=== PATIENT | female | born 1945 | race Caucasian/White ===

== ENCOUNTER 2018-10-16 15:12 | Observation (INO) | payer MEDICARE, OTHER ==
[~2018-10-16] VITALS: Ht 165.1 cm; Wt 92.7 kg
[~2018-10-16 15:12] MED LIST: ASPI-1012 PO; ATOR10TA69 PO; CLOP75TA32 PO; ESOM40CA54 PO; FENO48TA4 PO; HYDR-2132 PO; METO-391 PO; ROPI0.5T5 PO; SUCR1TAB2 PO; TRAZ150T79 PO
[2018-10-16 15:46] LABS: BASOPHILS % (AUTO) 0.8 % (0.0-5.0); EOSINOPHILS % (AUTO) 1.8 % (0.0-8.0); HEMATOCRIT 39.8 % (36-48); LYMPHOCYTES % (AUTO) 32.7 % (21.0-51.0); MEAN CORPUSCULAR HEMOGLOBIN 32.6 pg (27.0-33.0); MEAN CORPUSCULAR HGB CONC 34.5 g/dL (32.0-36.0); MEAN CORPUSCULAR VOLUME 94.5 fL (79-99); NEUTROPHILS % (AUTO) 55.7 % (40.0-77.0); PLATELET COUNT (AUTO) 270 K/uL (130-400); RED BLOOD CELL COUNT(AUTO) 4.21 MIL/uL (4.00-5.50); RED CELL DISTRIBUTION WIDTH 13.2 % (11.0-15.5); WHITE BLOOD COUNT (AUTO) 6.3 K/uL (4.8-10.8)
[2018-10-16 15:57] LABS: CREATININE 0.9 mg/dL (0.5-1.5); POTASSIUM 3.6 mmol/L (3.5-5.1)
[2018-10-16 15:58] LABS: INR 0.94 (0.85-1.15); PARTIAL THROMBOPLASTIN TIME 23.9 SEC (26.3-35.5); PROTHROMBIN TIME 9.9 SEC (9.6-11.6)
[2018-10-16] MEDS ORDERED: ASPIRIN 325 MG TABLET ONE (16:07)
[2018-10-16] MEDS ORDERED: LORAZEPAM 2 MG/ML 1 ML VIAL ONE (16:07)
[2018-10-16 16:08] LABS: ALBUMIN 3.7 g/dL (3.5-5.0); BILIRUBIN,TOTAL 0.4 mg/dL (0.2-1.0); TOTAL PROTEIN, SERUM 6.8 g/dL (6.0-8.3)
[2018-10-16 18:14] LABS: BILIRUBIN,URINE Negative (NEGATIVE); COLOR,URINE Yellow (YELLOW); GLUCOSE, URINE (UA) Negative (NEGATIVE); KETONES,URINE Negative (NEGATIVE); LEUKOCYTE ESTERASE ,URINE Negative (NEGATIVE); NITRATE,URINE Negative (NEGATIVE); OCCULT BLOOD,URINE Negative (NEGATIVE); PH,URINE 6.5 (5.0-8.0); PROTEIN,URINE Negative (NEGATIVE); UROBILINOGEN,URINE 0.2 mg/dL (0.2-1.0)
[2018-10-16 18:15] LABS: APPEARANCE,URINE CLEAR (CLEAR)
[2018-10-16 18:22] LABS: AMPHET/METH SCREEN,URINE NEGATIVE (NEGATIVE); BARBITURATE SCREEN, URINE POSITIVE (NEGATIVE); BENZODIAZEPINES SCREEN,URINE NEGATIVE (NEGATIVE); CANNABINOID SCREEN,URINE NEGATIVE (NEGATIVE); COCAINE SCREEN,URINE NEGATIVE (NEGATIVE); OPIATE SCREEN,URINE NEGATIVE (NEGATIVE); PHENCYCLIDINE SCREEN,URINE NEGATIVE (NEGATIVE)
[2018-10-16] MEDS: SUCRALFATE 1 GM TABLET PO SCH (21:00)
[2018-10-16] MEDS ORDERED: DIAZEPAM 5 MG TABLET PO PRN (21:00)
[2018-10-16] MEDS: TRAMADOL /APAP 37.5MG/325MG TAB PO SCH (21:00)
[2018-10-16] MEDS: TRAZODONE HCL 50 MG TAB PO SCH (21:00)
[2018-10-16] MEDS: ATORVASTATIN CALCIUM 10 MG TABLET PO SCH (21:00)
[2018-10-16] MEDS ORDERED: ACETAMINOPHEN 325 MG TAB PO PRN ×2 (21:00)
[2018-10-16] MEDS ORDERED: PROMETHAZINE HCL 25 MG TABLET PO PRN (21:00)
[2018-10-16] MEDS: FAMOTIDINE/PF 20 MG/2 ML VIAL IV SCH (21:00)
[2018-10-16] MEDS: PANTOPRAZOLE SODIUM 40 MG TABLET.DR PO SCH (21:29)
[2018-10-16] MEDS: METOPROLOL TARTRATE 25 MG TAB PO SCH (21:30)
[2018-10-16 21:44] LABS: THYROID STIMULATING HORMONE 1.59 uIU/mL (0.36-3.74)
[2018-10-16] MEDS ORDERED: ATORVASTATIN CALCIUM 10 MG TABLET ONE (22:05)
[2018-10-16] MEDS ORDERED: TRAZODONE HCL 50 MG TAB ONE (22:06)
[2018-10-16] MEDS ORDERED: SUCRALFATE 1 GM TABLET ONE (22:06)
[2018-10-16] MEDS ORDERED: TRAMADOL /APAP 37.5MG/325MG TAB ONE (22:07)
[2018-10-16] MEDS ORDERED: FAMOTIDINE/PF 20 MG/2 ML VIAL IV ONE (22:08)
[2018-10-17 01:00] VITALS: BP 144/84
[2018-10-17] MEDS ORDERED: BUTA1CAP49 PO (03:02)
[2018-10-17] MEDS ORDERED: BETA1TAB20 PO (03:02)
[2018-10-17] MEDS: TRAMADOL /APAP 37.5MG/325MG TAB PO SCH ×4 (03:12→21:00)
[2018-10-17 04:35] VITALS: BP 110/66
[2018-10-17 05:44] LABS: HEMOGLOBIN A1C 5.6 % (4.0-6.0)
[2018-10-17 08:00] VITALS: BP 115/71
[2018-10-17] MEDS ORDERED: FENOFIBRATE NANOCRYSTALLIZED 48 MG TAB PO SCH (09:00)
[2018-10-17] MEDS: ROPINIROLE HCL 1 MG TABLET PO SCH (09:47)
[2018-10-17] MEDS: SUCRALFATE 1 GM TABLET PO SCH ×2 (09:47→22:03)
[2018-10-17] MEDS: FAMOTIDINE/PF 20 MG/2 ML VIAL IV SCH ×2 (09:47→22:04)
[2018-10-17] MEDS: PANTOPRAZOLE SODIUM 40 MG TABLET.DR PO SCH ×2 (09:47→20:28)
[2018-10-17] MEDS: METOPROLOL TARTRATE 25 MG TAB PO SCH ×2 (09:47→22:03)
[2018-10-17] MEDS: FENOFIBRATE NANOCRYSTALLIZED 145 MG TAB PO SCH (11:01)
--- NOTE | 2018-10-17 11:39 | NUR ---
DYSPHAGIA EVAL COMPLETE. -S/S OF ASPIRATION. RECOMMEND REGULAR, THIN LIQUID DIET; PILLS WHOLE WITH LIQUIDS. PATIENT INFORMATION: Pt IS A 73 Y.O. FEMALE REFERRED FOR A BEDSIDE DYSPHAGIA EVALUATION SECONDARY TO POSSIBLE CVA UPON ADMISSION. Pt AAOX3 AND SERVED THE PRIMARY INFORMANT FOR MEDICAL AND SOCIAL HISTORY. Pt CURRENTLY ADMITTED SECONDARY TO INTRACTABLE MIGRAINE HEADACHE. Pt HAS A PAST MEDICAL HISTORY SIGNIFICANT FOR CVA 2016, CAD, HYPERTENSION, HYPERLIPIDEMIA, MIGRAINE HEADACHE, LEFT TKA, LOWER BACK SURGERY, APPENDECTOMY, PARTIAL HYSTERECTOMY, BILATERAL BREAST IMPLANTS. EVALUATION: SWALLOW FUNCTION AND EFFICIENCY WITHIN FUNCTIONAL LIMITS. ORAL MOTOR STRENGTH, COORDINATION, AND ROM WITHIN FUNCTIONAL LIMITS. LARYNGEAL ELEVATION/EXCURSION STRONG WITH TIMELY PHARYNGEAL RESPONSE. NO OVERT SIGNS OR SYMPTOMS OF ASPIRATION PRESENT AT BEDSIDE. VOCAL QUALITY CLEAR WITH NO THROAT CLEAR OR COUGH RESPONSE PRESENT. RECOMMENDATIONS: 1. REGULAR TEXTURE, THIN LIQUID DIET; PILLS WHOLE WITH LIQUIDS. 2. COMPENSATORY STRATEGIES (PROPHYLAXIS): *SEATED AT 90 DEGREE ANGLE G-CODES SWALLOWING: [id number] Addendum: 10/17/18 at 1142 [address] Amended: Links added.
--- NOTE | 2018-10-17 11:43 | NUR ---
COGNITIVE EVAL COMPLETE. COGNITIVE-LINGUISTIC ABILITIES WITHIN FUNCTIONAL LIMITS. PATIENT INFORMATION: Pt IS A 73 Y.O. FEMALE REFERRED FOR A COGNITIVE-LINGUISTIC EVALUATION SECONDARY TO POSSIBLE CVA UPON ADMISSION. Pt AAOX3 AND SERVED THE PRIMARY INFORMANT FOR MEDICAL AND SOCIAL HISTORY. Pt CURRENTLY ADMITTED SECONDARY TO INTRACTABLE MIGRAINE HEADACHE. Pt HAS A PAST MEDICAL HISTORY SIGNIFICANT FOR CVA 2016, CAD, HYPERTENSION, HYPERLIPIDEMIA, MIGRAINE HEADACHE, LEFT TKA, LOWER BACK SURGERY, APPENDECTOMY, PARTIAL HYSTERECTOMY, BILATERAL BREAST IMPLANTS. EVALUATION: Pt AAOX3. Pt REQUESTS WANTS AND NEEDS INDEPENDENTLY. Pt INTELLIGIBLE AT 100% ACCURACY TO THE UNFAMILIAR LISTENER. Pt COMMUNICATING AT CONVERSATIONAL LEVEL WITH NO DEFICITS IDENTIFIED AT THIS TIME. Pt COMPLETED COGNITIVE-LINGUISTIC EVALUATION TARGETING: ORIENTATION, ATTENTION/CONCENTRATION, MEMORY (IMMEDIATE, SHORT-TERM AND LONG-TERM), PROBLEM SOLVING, LOGIC/REASONING/INFERENCE, THOUGHT ORGANIZATION, FUNCTIONAL MATH AND TELLING TIME. Pt ABLE TO COMPLETE TASKS WITH CORRECT AND TIMELY ANSWERS TO ALL SECTIONS. G-CODES SPOKEN LANGUAGE EXPRESSION: [id number] Addendum: 10/17/18 at 1145 by JOSE RAFAEL ROSALES Amended: Links added.
[2018-10-17 12:00] VITALS: BP 120/75
[2018-10-17 16:00] VITALS: BP 106/61
[2018-10-17 20:04] VITALS: BP 109/64
[2018-10-17] MEDS ORDERED: AMITRIPTYLINE HCL 25 MG TABLET PO SCH (21:00)
[2018-10-17] MEDS: ATORVASTATIN CALCIUM 10 MG TABLET PO SCH (22:03)
[2018-10-17] MEDS: TRAZODONE HCL 50 MG TAB PO SCH (22:03)
[2018-10-18 00:15] VITALS: BP 144/73
[2018-10-18] MEDS: TRAMADOL /APAP 37.5MG/325MG TAB PO SCH ×2 (03:00→09:00)
[2018-10-18 04:00] VITALS: BP 104/67
[2018-10-18 08:16] VITALS: BP 110/71
[2018-10-18] MEDS ORDERED: ASPIRIN 81MG TAB.CHEW PO SCH (09:00)
[2018-10-18] MEDS ORDERED: CLOPIDOGREL BISULFATE 75 MG TAB PO SCH (09:00)
[2018-10-18] MEDS: SUCRALFATE 1 GM TABLET PO SCH (10:50)
[2018-10-18] MEDS: FAMOTIDINE/PF 20 MG/2 ML VIAL IV SCH (10:50)
[2018-10-18] MEDS: PANTOPRAZOLE SODIUM 40 MG TABLET.DR PO SCH (10:51)
[2018-10-18] MEDS: FENOFIBRATE NANOCRYSTALLIZED 145 MG TAB PO SCH (10:51)
[2018-10-18] MEDS: METOPROLOL TARTRATE 25 MG TAB PO SCH (10:51)
[2018-10-18] MEDS: ROPINIROLE HCL 1 MG TABLET PO SCH (10:51)
[2018-10-18 12:20] VITALS: BP 122/69
--- NOTE | 2018-10-18 12:58 | NUR ---
RD Notification Patient tolerating Heart Healthy Diet with PO intake at 75-100%. Patient with no report of GI distress. Patient LBM 10/16/18. Patient BMI 34.0 - Obesity Grade I. Patient monitored labs: B12 1960, Glu 114, Ca 10.0. No nutritional concerns at this time as per nursing and patient. RD to follow-up. Please notify RD as nutrition concerns arise. Thank you. Addendum: 10/18/18 at [address] Amended: Links added.
--- NOTE | 2018-10-18 14:57 | NUR ---
RELEASE OF MEDICALR MAEVE Patient signed release to have her records sent to Drs. Angela and Ирина. Filed in chart.
== END 2018-10-18 15:20 | disposition home or self-care (01) ==
LOC: EDH 15:12 → EDHIP 20:00 → 3CH 23:49
PROVIDERS: ADMIT Internal Medicine; ATTEND Internal Medicine
DX: R42 Dizziness and giddiness (principal); E78.5 Hyperlipidemia, unspecified; R13.10 Dysphagia, unspecified; G43.909 Migraine, unspecified, not intractable, without status migrainosus; R47.01 Aphasia; I10 Essential (primary) hypertension; I34.1 Nonrheumatic mitral (valve) prolapse; I69.351 Hemiplegia and hemiparesis following cerebral infarction affecting right dominant side; Z91.14 Patient's other noncompliance with medication regimen; Z90.711 Acquired absence of uterus with remaining cervical stump; Z96.652 Presence of left artificial knee joint; Z98.82 Breast implant status; Z82.0 Family history of epilepsy and other diseases of the nervous system; Z82.3 Family history of stroke; Z82.49 Family history of ischemic heart disease and other diseases of the circulatory system; Z83.3 Family history of diabetes mellitus; Z79.01 Long term (current) use of anticoagulants; Z79.899 Other long term (current) drug therapy
CPT/HCPCS: G8996; G8997; G8998; 36415; 70450; 70544; 70547; 70551; 71045; 80053; 80061; 80305; 81003; 82550; 82607; 82948; 83036; 83874; 84443; 84484; 85025; 85610; 85730; 92522; 92610; 93005; 93306; 93880; 96374; 96376; 99291; G0378; J2060; J3490; Q0169

== ENCOUNTER → 2021-11-08 | Outpatient (CLI) | payer OTHER ==
[~2021-11-08] MED LIST changes: +BETA1TAB20 PO; +BUTA1CAP49 PO; +FENO48TA10 PO; -FENO48TA4 PO; -ROPI0.5T5 PO; +ROPI0.5T7 PO
== END | disposition home or self-care (01) ==
LOC: RAH 14:42
PROVIDERS: ATTEND Physical Medicine & Rehabilitation
DX: M48.02 Spinal stenosis, cervical region (principal); M43.12 Spondylolisthesis, cervical region; M47.812 Spondylosis without myelopathy or radiculopathy, cervical region; M47.816 Spondylosis without myelopathy or radiculopathy, lumbar region; M48.061 Spinal stenosis, lumbar region without neurogenic claudication; R26.89 Other abnormalities of gait and mobility; Z88.1 Allergy status to other antibiotic agents
CPT/HCPCS: 72052; 72110

== ENCOUNTER → 2021-12-01 | Outpatient (CLI) | payer OTHER | END | disposition home or self-care (01) | LOC: RAH 08:56 | PROVIDERS: ATTEND Physical Medicine & Rehabilitation | DX: M48.02 Spinal stenosis, cervical region (principal); M47.812 Spondylosis without myelopathy or radiculopathy, cervical region | CPT/HCPCS: 72141 ==

== ENCOUNTER → 2021-12-30 | Outpatient (CLI) | payer OTHER | LOC: RAH 09:02 | PROVIDERS: ATTEND Physical Medicine & Rehabilitation | DX: M47.816 Spondylosis without myelopathy or radiculopathy, lumbar region (principal); M48.07 Spinal stenosis, lumbosacral region | CPT/HCPCS: 72148 ==

== ENCOUNTER 2022-04-05 00:14 | Emergency (ER) | payer OTHER ==
[~2022-04-05] VITALS: Ht 165.1 cm; Wt 68.5 kg
[2022-04-05] MEDS ORDERED: DICYCLOMINE HCL 10 MG/5 ML ML PO ONE (00:30)
[2022-04-05] MEDS ORDERED: 0.9%NACL 1000ML 1,000 ML IV ONE (00:30)
[2022-04-05] MEDS ORDERED: MAG/ALUM/SIMETH 30 ML UDCUP PO ONE (00:30)
[2022-04-05] MEDS ORDERED: LIDOCAINE HCL 2% VISCOUS 15 ML UDCUP PO ONE (00:30)
[2022-04-05] MEDS ORDERED: KETOROLAC 15MG/ML VIAL (15MG/ML) IV ONE (00:30)
[2022-04-05] MEDS ORDERED: ONDANSETRON 4MG INJ IVP ONE (00:30)
[2022-04-05 00:41] LABS: BASOPHILS % (AUTO) 0.7 % (0.0-5.0); EOSINOPHILS % (AUTO) 1.1 % (0.0-8.0); LYMPHOCYTES % (AUTO) 48.4 % (21.0-51.0); MEAN CORPUSCULAR HEMOGLOBIN 32.7 pg (27.0-33.0); MEAN CORPUSCULAR VOLUME 93.5 fL (79-99); MONOCYTES % (AUTO) 8.2 % (3.0-13.0); NEUTROPHILS % (AUTO) 41.4 % (40.0-77.0); PLATELET COUNT (AUTO) 217 K/uL (130-400); RED BLOOD CELL COUNT(AUTO) 3.85 MIL/uL (4.00-5.50); RED CELL DISTRIBUTION WIDTH 12.9 % (11.0-15.5); WHITE BLOOD COUNT (AUTO) 5.6 K/uL (4.8-10.8)
[2022-04-05 00:54] LABS: CREATININE 0.7 mg/dL (0.5-1.5); POTASSIUM 3.5 mmol/L (3.5-5.1)
[2022-04-05 00:58] LABS: TOTAL PROTEIN, SERUM 6.2 g/dL (6.0-8.3)
[2022-04-05] MEDS ORDERED: DICY10 PO (01:38)
[2022-04-05 01:46] VITALS: BP 125/60
== END 2022-04-05 02:04 | disposition home or self-care (01) ==
LOC: EDH 00:14
DX: R10.13 Epigastric pain (principal); E78.00 Pure hypercholesterolemia, unspecified; I10 Essential (primary) hypertension; Z79.1 Long term (current) use of non-steroidal anti-inflammatories (NSAID); Z79.82 Long term (current) use of aspirin; Z79.899 Other long term (current) drug therapy; Z88.0 Allergy status to penicillin; Z86.73 Personal history of transient ischemic attack (TIA), and cerebral infarction without residual deficits
CPT/HCPCS: 99283; 96374; 71045; 96361; 96375; 84484; 80053; 83690; 85025; 36415; 93005; J7030; J2405; J1885

== ENCOUNTER → 2023-10-04 | Outpatient (CLI) | payer OTHER ==
[~2023-10-04] MED LIST changes: +DICY10 PO; +ROPI0.5T37 PO; -ROPI0.5T7 PO
== END | disposition home or self-care (01) ==
LOC: RAH 13:42
PROVIDERS: ATTEND Nurse Practitioner Adult Health
DX: M25.562 Pain in left knee (principal)
CPT/HCPCS: 73562

== ENCOUNTER → 2024-02-29 | Outpatient (CLI) | payer OTHER ==
[~2024-02-29] MED LIST changes: -ESOM40CA54 PO; +ESOM40CA66 PO; +GADOTERATE MEGLUMINE 10 MMOL/20 ML VIAL IV ONE
== END | disposition home or self-care (01) ==
LOC: RAH 07:28
PROVIDERS: ATTEND Internal Medicine Gastroenterology
DX: K80.20 Calculus of gallbladder without cholecystitis without obstruction (principal); R93.2 Abnormal findings on diagnostic imaging of liver and biliary tract
CPT/HCPCS: 74183; A9575

== ENCOUNTER → 2024-06-02 | Outpatient (CLI) | payer OTHER ==
[~2024-06-02] MED LIST changes: -GADOTERATE MEGLUMINE 10 MMOL/20 ML VIAL IV ONE
== END | disposition home or self-care (01) ==
LOC: RAH 12:57
PROVIDERS: ATTEND Nurse Practitioner Adult Health
DX: G31.89 Other specified degenerative diseases of nervous system (principal); F03.90 Unspecified dementia, unspecified severity, without behavioral disturbance, psychotic disturbance, mood disturbance, and anxiety
CPT/HCPCS: 70551

== ENCOUNTER → 2024-06-19 | Outpatient (CLI) | payer OTHER | END | disposition home or self-care (01) | LOC: RAH 10:30 | PROVIDERS: ATTEND Nurse Practitioner Adult Health | DX: N26.1 Atrophy of kidney (terminal) (principal); R31.9 Hematuria, unspecified; R10.31 Right lower quadrant pain; Z90.710 Acquired absence of both cervix and uterus | CPT/HCPCS: 76770; 76856 ==

== ENCOUNTER → 2024-08-25 | Outpatient (CLI) | payer OTHER ==
--- NOTE | 2024-08-26 09:11 | HMCIMG ---
LUMBAR W FLEXION/EXTENSION REASON: LUMBART RADICULOPATHY, SCOLIOSIS, SACROLITIS COMPARISON: None TECHNIQUE: 4 views were obtained including flexion and extension. FINDINGS: There is 22 degrees levoscoliosis visible on the AP view. Lateral view shows normal posterior vertebral body alignment. There is a 50% compression deformity superior endplate of L1 unchanged compared to prior study 11/08/2021. Flexion and extension views were obtained. There is normal posterior vertebral body alignment. There are moderate degenerative changes in the facets. IMPRESSION: 1. 22 degrees levoscoliosis, this has increased somewhat since prior study 11/08/2021. 2. Stable compression deformity L1. 3. Degenerative changes posterior facets 4. No subluxation on flexion and extension views.
== END | disposition home or self-care (01) ==
LOC: RAH 16:10
PROVIDERS: ATTEND Physician Assistant
DX: M47.26 Other spondylosis with radiculopathy, lumbar region (principal); M41.86 Other forms of scoliosis, lumbar region; M46.1 Sacroiliitis, not elsewhere classified
CPT/HCPCS: 72114

== ENCOUNTER → 2024-09-19 | Outpatient (CLI) | payer OTHER ==
--- NOTE | 2024-09-22 09:21 | HMCIMG ---
SCREENING MAMMOGRAM REASON: Annual Exam COMPARISON: 02/21/2022 TECHNIQUE: CC and MLO views of the bilateral breasts were performed.Implant displacement views were performed. CAD was performed as well. FINDINGS: Parenchymal density: There are scattered areas of fibroglandular density. There are no focal mass lesions. There are no pathologic appearing calcifications. There is no evidence of architectural distortion or skin thickening. There is an implant in place without evidence of rupture. IMPRESSION: Stable screening mammogram. The patient was entered into a reminder system with a target due date for their next mammogram. BI-RADS CATEGORY 2: BENIGN FINDINGS Recommend monthly self breast exam as well as annual clinical examination. A negative x-ray should not delay biopsy if a dominant or clinically suspicious mass is present, since 8-10% of cancers are not identified by mammography. Dense breasts particularly, may obscure an underlying neoplasm. Some of these may be detected clinically and therefore, clinical examination is an essential part of breast evaluation.
== END | disposition home or self-care (01) ==
LOC: RAH 08:49
PROVIDERS: ATTEND Nurse Practitioner Adult Health
DX: Z12.31 Encounter for screening mammogram for malignant neoplasm of breast (principal); R92.323 Mammographic fibroglandular density, bilateral breasts
CPT/HCPCS: 77067

== ENCOUNTER 2024-10-22 06:36 | Day surgery (SDC) | payer OTHER ==
[2024-10-20 15:06] VITALS: BP 122/65; PULSE 66; RESP 18; TEMP 97.2
[2024-10-20 15:14] LABS: BASOPHILS # (AUTO) 0.05 K/uL (0.00-0.20); BASOPHILS % (AUTO) 0.7 % (0.0-5.0); EOSINOPHILS # (AUTO) 0.13 K/uL (0.00-0.70); EOSINOPHILS % (AUTO) 1.9 % (0.0-8.0); HEMATOCRIT 40.1 % (36-48); IMMATURE GRANULOCYTE ABSOLUTE 0.02 K/uL (0-1); LYMPHOCYTES # (AUTO) 1.6 K/uL (1.0-4.8); MEAN CORPUSCULAR HEMOGLOBIN 33.9 pg (27.0-33.0); MEAN CORPUSCULAR HGB CONC 33.4 g/dL (32.0-36.0); MEAN CORPUSCULAR VOLUME 101.5 fL (79-99); MONOCYTES # (AUTO) 0.5 K/uL (0.1-1.0); MONOCYTES % (AUTO) 7.4 % (3.0-13.0); NEUTROPHILS # (AUTO) 4.7 K/uL (1.8-7.7); NEUTROPHILS % (AUTO) 66.7 % (40.0-77.0); PLATELET COUNT (AUTO) 204 K/uL (130-400); RED BLOOD CELL COUNT(AUTO) 3.95 MIL/uL (4.00-5.50); RED CELL DISTRIBUTION WIDTH 13.4 % (11.0-15.5)
[2024-10-20 15:25] LABS: CREATININE 0.7 mg/dL (0.5-1.0); POTASSIUM 4.7 mmol/L (3.5-5.1)
[~2024-10-22] VITALS: Ht 165.1 cm; Wt 78.9 kg
[2024-10-22] VITALS (12 sets, daily range): BP systolic 134–144; BP diastolic 60–69; PULSE 63–90; RESP 12–19; TEMP 96.5–98
[~2024-10-22 06:36] MED LIST changes: +ACAR25TA2 PO; -ASPI-1012 PO; +ATOR10 PO; -ATOR10TA69 PO; -BUTA1CAP49 PO; -DICY10 PO; +DICY20TA3 PO; +DONE5TAB5 PO; -ESOM40CA66 PO; +FAMO20TA8 PO; -FENO48TA10 PO; -HYDR-2132 PO; -SUCR1TAB2 PO; +TRAZ-187 PO; -TRAZ150T79 PO
[2024-10-22] MEDS ORDERED: dexaMETHasone SOD PHOSPHATE 10MG/ML 1ML VIAL ONE ×2 (07:18→07:22)
[2024-10-22] MEDS ORDERED: LIDOCAINE PF 100MG/5ML (2%) SYRINGE 5ML ONE (07:18)
[2024-10-22] MEDS ORDERED: ondanSETRON 4MG INJ ONE ×2 (07:18→07:22)
[2024-10-22] MEDS ORDERED: MIDAZOLAM HCL 1 MG/ML 2ML VIAL ONE (07:19)
[2024-10-22] MEDS ORDERED: proPOFol 10 MG/ML 20ML VIAL IV ONE (07:19)
[2024-10-22] MEDS ORDERED: FENTanyl CITRate PF 50 MCG/1 ML 2ML VIAL ONE (07:19)
[2024-10-22] MEDS ORDERED: rocuRONium bROMide 10MG/1ML 5ML VL ONE (07:19)
[2024-10-22] MEDS ORDERED: phenylEPHRINE HCL 10 MG/ML 1ML VIAL IV ONE (07:22)
[2024-10-22] MEDS ORDERED: NEOSTIGMINE METHYLSULFATE 1MG/ML IV ONE (07:22)
[2024-10-22] MEDS ORDERED: GLYCOPYRROLATE 0.2 MG/ML 5 ML VIAL ONE (07:22)
[2024-10-22] MEDS ORDERED: ROPivacaine 0.5% 5MG/ML 30ML ONE (07:23)
[2024-10-22] MEDS: CLINDAMYCIN 900MG/6ML INJ IV ONE (07:58)
[2024-10-22] MEDS ORDERED: ePHEDrine SULFate 50 MG/ML AMPULE ONE (08:42)
[2024-10-22] MEDS: CLINDAMYCIN IVPB 900MG/50ML 50 ML IV ONE (08:54)
[2024-10-22] MEDS: LACTATED RINGERS 1000ML 1,000 ML IV ONE (08:54)
[2024-10-22] MEDS: ceFAZolin SODIUM 2 GM VIAL ONE (08:54)
--- NOTE | 2024-10-22 09:33 | OP ---
Operative Note: DATE OF PROCEDURE: 10/22/24 SURGEON: SUSAN GAMA MD INCENDIARIES SUPERVISOR: [please review operative record] ANESTHESIA: [general and local] ANESTHESIOLOGIST/FOOD DEHYDRATOR OPERATOR: [please review operative record] PREOPERATIVE DIAGNOSIS: [symptomatic cholelithiasis, gallbladder mass] POSTOPERATIVE DIAGNOSIS: [symptomatic cholelithiasis, gallbladder mass] SYNOPSIS: [mildly inflamed gallbladder, negative IOC. Small mobile mass palpated within gallbladder lumen] PROCEDURE: [laparoscopic cholecystectomy with intraoperative cholangiogram] ESTIMATED BLOOD LOSS: [20 ccs] INDICATIONS: [Patient is a 79 yo female with RUQ discomfort and ultrasound findings of gallbladder mass. Recommendation was given for cholecystectomy. Risks, benefits, alternatives were discussed. All questions answered. Patient agreed to proceed with surgical intervention.] DESCRIPTION OF PROCEDURE: [After proper consent was obtained, the patient was taken to the operating room and placed in the supine position on the operating table. General endotracheal anesthesia was then induced. The patients abdomen was sterilely prepped and draped in the standard surgical fashion. Through a RIGHT subcostal incision, Veress needle was inserted into the peritoneal cavity. Insufflation was allowed to 12 mmHg. Through a epigastric incision, 5mm trocar and laparoscope were inserted in to the peritoneal cavity using optiview. Veress needle and its vicinity were examined with no signs of injury. Additional working trocars were placed under direct visualization. Patient was positioned at 20 reverse Trendelenburg, slight tilt to the left. Gallbladder was examined, it appeared mildly inflamed. Gallbladder fundus was grasped and retracted cephalad. Infundibulum was grasped and retracted medially and laterally to accomplish my dissection. At this time, Calots triangle was dissected using a combination of blunt dissection and electrocautery. the cystic duct wall and cystic artery were circumferentially dissected. A clip was placed as high up on the cystic duct as possible. Ductotomy was performed on the cystic duct using sharp scissors. Cholangiogram was obtained. This revealed good distal flow into duodenum, no intraductal filling defect and good visualization of hepatic radicles. The cystic duct was then clipped 3 times and sharply divided with the 3 clips staying behind.The cystic artery was then dissected free and also doubly clipped and also ligated. The gallbladder was then taken off its peritoneal attachment with hook electrocautery off the gallbladder bed fossa. Hemostasis was obtained. The gallbladder was then removed with an EndoCatch bag through an 12 mm port. The port of this fascia was closed with 0 Vicryl suture through a suture passer. Final inspection revealed no leakage of bile and adequate hemostasis. The abdomen was then allowed to collapse. All skin incisions were closed with 4- 0 Monocryl in running subcuticular fashion. The incisions were covered with Dermabond. The patient was awoken from anesthesia and transported to the recovery room in good condition. All instrument, sponge, and needle counts were correct at the end of the case.] SUSAN GAMA MD Oct 22, 2024 09:33
[2024-10-22] MEDS: ondanSETRON 4MG INJ ONE (09:34)
--- NOTE | 2024-10-22 09:39 | DS ---
Discharge Summary Hospital Course Pt is a 79 yo female that presented from the outpatient setting for elective laparoscopic cholecystectomy with intraoperative cholangiogram on 10/22/24 for gallbladder mass. Patient tolerated the procedure well. No issues intraoperatively. Pt with no concerns at this time. Currently in recovery. Remains hemodynamically stable, afebrile. Normal sinus rhythm. Aerating well on 2 l NC. Abdomen is benign. Incisions c/d/i. appropriately tender to palpation. No rebound or guarding. She will discharge today once meeting anesthesia DC criteria. Follow up in place. Post op meds have been submitted. Will resume regular diet. No lifting >20 lbs for 1 month Return precautions given including fevers of 101.5 or higher, worsening abdominal pain, intractable nausea or vomiting. SUSAN GAMA MD Oct 22, 2024 09:39
--- NOTE | 2024-10-22 10:25 | NUR ---
Full and complete discharge instructions given to Patient and Family both verbally and in writing. Explained Surgical procedure precautions and follow up. Voided in restroom. Lap Beatrice sites x 4 clean and dry. All questions answered. PIV removed with catheter tip intact. Home with Family W/C to POV.
[2024-10-22] MEDS ORDERED: IOHEXOL-300 50 ML VIAL IV ONE (12:02)
--- NOTE | 2024-10-22 13:08 | HMCIMG ---
CHOLANGIO &/OR PANCRE INTRAOPE REASON: CHOLANGIOGRAM W IOC'S. COMPARISON: None TECHNIQUE: Intraoperative cholangiogram study was performed by referring physician. FINDINGS: Please see procedure report by referring physician. IMPRESSION: Intraoperative films.
== END 2024-10-22 10:40 | disposition home or self-care (01) ==
LOC: DAH 06:36
PROVIDERS: ATTEND Surgery
DX: K81.1 Chronic cholecystitis (principal); I10 Essential (primary) hypertension; G43.909 Migraine, unspecified, not intractable, without status migrainosus; E11.9 Type 2 diabetes mellitus without complications; K91.1 Postgastric surgery syndromes; R42 Dizziness and giddiness; K21.9 Gastro-esophageal reflux disease without esophagitis; Z86.16 Personal history of COVID-19; E78.5 Hyperlipidemia, unspecified; Z88.1 Allergy status to other antibiotic agents; Z86.73 Personal history of transient ischemic attack (TIA), and cerebral infarction without residual deficits; Z79.01 Long term (current) use of anticoagulants; Z79.899 Other long term (current) drug therapy
CPT/HCPCS: 80048; 85025; 86850; 86900; 86901; 36415; 47563; 88304; 74300; 64488; A6260; A4663; J7030; A4215 ×2; C1758; J7120; J3010; J1100 ×2; J3490 ×4; J2003; J2250; J2704; J2405 ×2; J2710; J2795; J2371; Q9967; C1769 ×3; A4649 ×2; A4930; A4222; A4221; A4216; A4223 ×2; A4600; J0690

== ENCOUNTER 2024-10-31 12:36 | Emergency (ER) | payer OTHER ==
[~2024-10-31] VITALS: Ht 152.4 cm; Wt 76.2 kg
--- NOTE | 2024-10-31 14:29 | EKG ---
[facility] Test Date: 2024-10-31 Test Time: 14:26:09 Pat Name: MARINA CONNER Department: ED Room: Gender: F Environmental Engineering Assistant: [id number] : 1945 Requested By: TALA CARDENAS Order Number: [id number] Reading MD: Chidi Chan Measurements Intervals [place] Rate: 63 P: 49 WI: 177 QRS: 31 QRSD: 98 T: 32 QT: 415 QTc: 425 Interpretive Statements Sinus rhythm Anteroseptal infarct, age indeterminate Compared to ECG 04/05/2022 00:21:21 Myocardial infarct finding now present Electronically Signed On 10-31-2024 14:50:34 SECTION HAND by Chidi Chan Please click the below link to view image of tracing.
--- NOTE | 2024-10-31 14:44 | ERN ---
General Chief Complaint: Shortness of Breath Stated Complaint: SOB Time Seen by MD: 12:38 Source: patient History of Present Illness Initial Comments PATIENT IS A 79-YEAR-OLD FEMALE COMING IN TO BE EVALUATED FOR SHORTNESS OF BREATH. PER PATIENT THE SHORTNESS OF BREATH HAS BEEN ONGOING SINCE 1:00 A.M.. SHE ALSO STATES THAT SHE WAS RECENTLY OPERATED AND GALLBLADDER WAS REMOVED. NO CHILLS NO HISTORY OF COPD OR ASTHMA. Allergies: Coded Allergies: amoxicillin (Unverified Allergy, Unknown, 06/07/16) Home Meds Reported Medications Acarbose (Acarbose) 25 Mg Tablet, 25 MG PO TID, TAB 10/20/24 Donepezil HCl (Aricept 5Mg Tab) 5 Mg Tab, 5 MG PO DAILY, TAB 10/20/24 Clopidogrel Bisulfate (Clopidogrel) 75 Mg Tablet, 75 MG PO HS, TAB 10/20/24 Famotidine (Famotidine) 20 Mg Tablet, 20 MG PO BID, TAB 10/20/24 Dicyclomine HCl (Dicyclomine HCl) 20 Mg Tablet, 20 MG PO BID, TAB 10/20/24 Trazodone HCl (Trazodone HCl) 100 Mg Tablet, 100 MG PO HS, TAB 10/20/24 Atorvastatin Calcium (LIPITOR) 20 Mg Tab, 20 MG PO HS, TAB 10/20/24 Vit A/Vit C/Vit E/Zinc/Copper (Preservision Areds Tablet) 1 Each Tablet, 1 EACH PO BID, TAB 10/17/18 Ropinirole HCl (Ropinirole HCl) 0.5 Mg Tablet, 0.5 MG PO HS, TAB 11/03/16 Metoprolol Succinate (Metoprolol Succinate) 50 Mg Tab.er.24h, 50 MG PO HS, TAB 09/05/16 Past Medical History Past Medical History: High Cholesterol, Heart Disease, Hypertension Past Surgical History: Hysterectomy, Cholecystectomy, Surgical History Other: BACK, LEFT KNEE SX Social History Social History: Negative, Lives with family Female( History) History: Not Applicable ROS Dictation CONSTITUTIONAL: NO CHILLS, NO FEVER, NO WEAKNESS, NO DIAPHORESIS, NO MALAISE. HEAD/FACE: NO SIGNS OF TRAUMA. EENT: NO EYE PAIN, NO BLURRED VISION, NO TEARING, NO DOUBLE VISION, NO EAR PAIN, NO EAR DISCHARGE, NO NOSE PAIN, NO NASAL CONGESTION, NO THROAT PAIN, NO THROAT SWELLING, NO MOUTH PAIN. RESPIRATORY: NO COUGH, NO ORTHOPNEA, NO SOB, NO STRIDOR, NO WHEEZING. CARDIOVASCULAR: NO CHEST PAIN, NO EDEMA, NO PALPITATIONS, NO SYNCOPE. GASTROINTESTINAL/ABDOMINAL: NO ABDOMINAL PAIN, NO CONSTIPATION, NO DIARRHEA, NO NAUSEA, NO VOMITING. GENITOURINARY: NO ABNORMAL DISCHARGE, NO DYSURIA, NO FREQUENT URINATION, NO HEMATURIA. NO COMPLAINTS OF PAIN IN THE GENITALS. MUSCULOSKELETAL: NO BACK PAIN, NO GOUT, NO JOINT PAIN, NO JOINT SWELLING, NO MUSCLE PAIN, NO MUSCLE STIFFNESS, NO NECK PAIN. INTEGUMENTARY: NO CHANGE IN COLOR, NO CHANGE IN HAIR/NAILS, NO DRYNESS, NO LESION, NO LUMPS, NO RASH. NEUROLOGICAL/PSYCH: NO ANXIETY, NOT DEPRESSED, NO EMOTIONAL PROBLEM, NO HEADACHE, NO NUMBNESS, NO PRE-EXISTING DEFICIT, NO HISTORY OF SEIZURES, NO TREMORS, NO WEAKNESS. HEMATOLOGIC/LYMPHATIC: NOT ANEMIC, NO HISTORY OF BLOOD CLOTS, NO APPARENT BLEEDING, NO BRUISING, GLANDS NOT SWOLLEN. ALL SYSTEMS NEGATIVE, EXCEPT NOTED. Physical Exam Physical Exam Dictation VITAL SIGNS: REVIEWED. GENERAL APPEARANCE: ALERT, ORIENTED X3, NO ACUTE DISTRESS, OBESE. HEAD AND FACE: NON-TRAUMATIC. EYES: PERRL, PINK CONJUNCTIVAS, EYELID NO TRAUMA, ANTERIOR CHAMBER CLEAR. EARS: PINNAS INTACT AND NO SIGNS OF TRAUMA OR ERYTHEMA. EAR CANALS CLEAR AND NO DISCHARGE. TMS NO ERYTHEMA. NOSE: NO DISCHARGE, NO BLEEDING. OROPHARYNX: MOUTH NORMAL, TEETH NO CARIES, TONGUE PINK. PHARYNX CLEAR, NO ERYTHEMA. TONSILS NO EXUDATES, NO ABSCESSES NOTED. MUCOUS MEMBRANE MOIST. NECK: SUPPLE, NON-TENDER, NO THYROMEGALY, NO MASSES, NO JVD, NO BRUITS. BREAST: DEFERRED. CHEST: NO TENDERNESS, NO CREPITUS, NO PARADOXICAL MOVEMENT, NO RETRACTIONS. LUNGS: CLEAR, WELL-VENTILATED, SYMMETRIC, NO RALES, NO WHEEZING, NO RHONCHI, NO STRIDOR, GOOD BREATH SOUNDS BILATERALLY. HEART: REGULAR RATE, REGULAR RHYTHM, NO MURMUR, NO GALLOPS. VASCULAR: NO PERIPHERAL EDEMA. ABDOMEN: SOFT, POSITIVE BOWEL SOUNDS, NONDISTENDED, NO GUARDING, NONTENDER, NO REBOUND, NO MASSES NO HEPATOMEGALY, NO SPLENOMEGALY, NO HANNON'S SIGN, NO HERNIAS. RECTAL: DEFERRED. GENITAL: DEFERRED. NEUROLOGICAL: NORMAL SPEECH, GROSS MOTOR FUNCTION INTACT, GROSS SENSORY FUNCTION INTACT. MUSCULOSKELETAL: NECK NONTENDER, FULL RANGE OF MOTION, BACK NONTENDER, FULL RANGE OF MOTION. EXTREMITIES: NONTENDER, FULL RANGE OF MOTION. SKIN: COLOR PINK, DRY, NO TURGOR, NO RASH, NO LACERATIONS, NO ABRASIONS, NO CONTUSIONS. LYMPHATICS: DEFERRED. Results Laboratory and Microbiology Lab and Micro Result Laboratory Tests Test 10/31/24 14:39 10/31/24 15:45 10/31/24 15:55 White Blood Count 7.0 K/uL (4.8-10.8) Red Blood Count 3.98 MIL/uL (4.00-5.50) L Hemoglobin 13.5 g/dL (12.0-16.0) Hematocrit 40.1 % (36-48) Mean Corpuscular Volume 100.8 fL (79-99) H Mean Corpuscular Hemoglobin 33.9 pg (27.0-33.0) H Mean Corpuscular Hemoglobin Concent 33.7 g/dL (32.0-36.0) Red Cell Distribution Width 12.9 % (11.0-15.5) Platelet Count 235 K/uL (130-400) Mean Platelet Volume 8.8 fL (7.5-10.5) Immature Granulocyte % (Auto) 0.1 % (0-1) Neutrophils (%) (Auto) 58.7 % (40.0-77.0) Lymphocytes (%) (Auto) 24.9 % (21.0-51.0) Monocytes (%) (Auto) 9.4 % (3.0-13.0) Eosinophils (%) (Auto) 6.0 % (0.0-8.0) Basophils (%) (Auto) 0.9 % (0.0-5.0) Neutrophils # (Auto) 4.1 K/uL (1.8-7.7) Lymphocytes # (Auto) 1.8 K/uL (1.0-4.8) Monocytes # (Auto) 0.7 K/uL (0.1-1.0) Eosinophils # (Auto) 0.42 K/uL (0.00-0.70) Basophils # (Auto) 0.06 K/uL (0.00-0.20) Absolute Immature Granulocyte (auto 0.01 K/uL (0-1) Nucleated Red Blood Cells 0.0 % (0.0-0.19) Prothrombin Time 10.3 SEC (9.6-11.6) Prothromb Time International Ratio 0.97 (0.85-1.15) Activated Partial Thromboplast Time 25.5 SEC (26.3-35.5) L Sodium Level 139 mmol/L (136-145) Potassium Level 3.9 mmol/L (3.5-5.1) Chloride Level 104 mmol/L (101-111) Carbon Dioxide Level 33 mmol/L (21-32) H Blood Urea Nitrogen 17 mg/dL (7-18) Creatinine 0.7 mg/dL (0.5-1.0) Glomerular Filtration Rate Calc 89 mL/min (>90) Random Glucose 92 mg/dL (70-105) Total Calcium 9.2 mg/dL (8.5-10.1) Magnesium Level 2.10 mg/dL (1.80-2.40) Total Creatine Kinase 38 U/L (21-232) # Troponin I High Sensitivity 4.8 ng/L (4-50) B-Type Natriuretic Peptide 38 pg/mL (0-100) Influenza Type A Antigen Negative For Type A Influenza Type B Antigen Negative For Type B SARS-CoV-2, RNA, NAAT NEGATIVE SARS CoV-2 Urine Color YELLOW (YELLOW) Urine Appearance CLEAR (CLEAR) Urine pH 5.5 (5.0-8.0) Urine Specific Tucker 1.022 (1.001-1.031) Urine Protein NEGATIVE mg/dL (NEGATIVE) Urine Glucose (UA) NEGATIVE mg/dL (NEGATIVE) Urine Ketones NEGATIVE mg/dL (NEGATIVE) Urine Occult Blood NEGATIVE (NEGATIVE) Urine Nitrate NEGATIVE (NEGATIVE) Urine Bilirubin NEGATIVE mg/dL (NEGATIVE) Urine Urobilinogen 0.2 mg/dL (0.2-1.0) Urine Leukocyte Esterase 500 Lm/uL (NEGATIVE) H Urine RBC 11-25 /HPF (0-1) H Urine WBC 51-100 /HPF (0-1) H Urine Squamous Epithelial Cells RARE /HPF (0-2) Urine Bacteria RARE /HPF (None Seen) Labs Reviewed?: Yes EKG/XRAY/US/CT/MRI EKG Comment 10/31/2024 TIME 2:26 P.M. VENTRICULAR RATE 63 SINUS RHYTHM [place] [address] WAVE ELEVATION OR DEPRESSION X-RAY Comment [facility] [address] [place] [id number] IMAGING REPORT Signed PATIENT: MARINA CONNER MR#: [id number] : 1945 SEX: F AGE: 79 LOCATION: ED ORDER [id number] STATUS: REG ER REPORT#: [id number] SERVICE 1416 REASON: SOB ORDERING PHYSICIAN: TALA CARDENAS MD PROCEDURE: CXR1VW - CHEST 1VW PORTABLE CHEST RADIOGRAPH INDICATION: SOB COMPARISON: 04/05/2022 FINDINGS: Heart size is normal. The pulmonary vascularity and derrick appear normal. No abnormal pulmonary parenchymal opacity or consolidation identified. No significant pleural effusion noted. No pneumothorax detected. Mild thoracic spondylosis. IMPRESSION: No radiographic evidence for any acute cardiopulmonary process. DICTATED BY: GRZEGORZ AMBROSIO MD DATE: 10/31/24 1453 ELECTRONICALLY SIGNED BY: GRZEGORZ AMBROSIO MD DATE: 10/31/[address] Scan Comment [facility] [address] [address] IMAGING REPORT Signed PATIENT: MARINA CONNER MR#: [id number] : 1945 SEX: F AGE: 79 LOCATION: EDH ORDER [id number] STATUS: REG ER REPORT#: [id number] SERVICE 1630 REASON: SHORTNESS OF BREATH ORDERING PHYSICIAN: TALA CARDENAS MD PROCEDURE: CHES PE - CT CHEST PE PROTOCOL WWO CONT CT ANGIOGRAM OF THE CHEST WITHOUT AND WITH CONTRAST. CT RECONSTRUCTIONS INDICATION: Shortness of breath TECHNIQUE: Routine axial images using 3 mm slice thickness were acquired from the lung apices to the bases before and after the intravenous administration of 100 mL of Omnipaque 350 contrast material using the pulmonary embolism protocol. Maximum Intensity Projection imaging in the sagittal and coronal planes were also provided. CT was performed with one or more of the following dose reduction techniques: Automated exposure control, adjustment of the mA and/or kV according to patient size, or use of iterative reconstruction technique. COMPARISON: None FINDINGS: The contrast bolus is of good quality for diagnosis of pulmonary embolism. The heart size is within normal limits without pericardial effusion. The main pulmonary arteries, segmental branches, and visualized subsegmental pulmonary arteries appear normal without intraluminal filling defects. Pulmonary trunk is not enlarged. No evidence for thoracic aortic aneurysm or dissection. The origins of the great vessels and thoracic aorta appear normal. The visible portions of the trachea and airways are patent. No pleural effusion, pneumothorax, abnormal opacity or consolidation, pulmonary nodule, or mass identified. No axillary, hilar, or mediastinal lymphadenopathy detected. Gastric bypass surgery changes. Gallbladder is absent. 2.8 cm diverticulum along the proximal duodenum. Mild thoracic dextroscoliosis. IMPRESSION: No evidence for pulmonary embolism. Additional minor findings and pertinent negatives as reported. DICTATED BY: GRZEGORZ AMBROSIO MD DATE: 10/31/241703 ELECTRONICALLY SIGNED BY: GRZEGORZ AMBROSIO MD DATE: 10/31/24 170 [facility] MDM: Differential diagnosis: Previous surgery, shortness of breath, UTI, dehydration Patient is a 79-year-old female coming in to be evaluated for shortness of breath. Patient states the symptoms wax and wane. She was recently discharged after having a cholecystectomy. CT did not disclose acute findings patient was found to have a urinary tract infection based on laboratory workup. Patient will be discharged in stable condition with a diagnosis of UTI and dehydration. ED Course Orders Procedure Category Date Status Time Cbc With Differential LAB 10/31/24 Complete 14:16 Prothrombin Time With LAB 10/31/24 Complete INR 14:16 B-Type Natriuretic LAB 10/31/24 Complete Peptide 14:16 Chest 1vw RAD 10/31/24 Resulted 14:16 12 Lead Ekg Tracing- EKG 10/31/24 Resulted Technical 14:16 Magnesium LAB 10/31/24 Complete 14:16 Urinalysis Profile LAB 10/31/24 Complete 14:16 Partial LAB 10/31/24 Complete Thromboplastin Time 14:16 Basic Metabolic Panel LAB 10/31/24 Complete 14:16 Covid Rna Naat LAB 10/31/24 Complete 14:16 Influenza Type A & B, LAB 10/31/24 Complete Rapid 14:16 Cardiac Panel LAB 10/31/24 Complete 14:39 Culture Urine ELIN 10/31/24 In Process 16:09 Ct Chest Pe Protocol CT 10/31/24 Resulted Wwo Cont 16:30 Iohexol (Omnipaque) PHA 10/31/24 Complete 16:31 Current Medications Medications (Trade) Dose Ordered Sig/Josse Route PRN Reason Start Time Stop Time Status Last Admin Dose Admin Iohexol (Omnipaque) 35,000 mg STK-MED ONCE IV 10/31/24 16:31 10/31/24 16:31 DC Vital Signs Date Time Temp Pulse Resp B/P (MAP) Pulse Ox O2 Delivery O2 Flow Rate FiO2 10/31/24 16:31 98.1 63 20 154/63 98 Room Air* 0 21 10/31/24 12:46 99.1 81 16 105/61 96 Room Air 0 DX & DISP Disposition: Discharge Departure Impression: Primary Impression: UTI (urinary tract infection) Additional Impression: Dehydration Condition: Stable Scripts Sulfamethoxazole/Trimethoprim (Bactrim Ds Tablet) 800 Mg-160 Mg Tablet 1 TAB PO BID for 10 Days, #20 TAB 0 Refills Prov: TALA CARDENAS MD 10/31/24 Additional Instructions: FOLLOW-UP WITH PRIMARY CARE PROVIDER IN 1 TO 2 DAYS. TAKE MEDICATIONS DIRECTED HERE IN THE EMERGENCY ROOM. OKAY TO CONTINUE HOME MEDICATIONS UNLESS OTHERWISE DISCUSSED DURING YOUR VISIT IN THE EMERGENCY ROOM TODAY. RETURN TO YOUR NEAREST EMERGENCY ROOM IF SYMPTOMS WORSEN OR IF THERE IS NO IMPROVEMENT. CALL [phone] IF YOU NEED IMMEDIATE ASSISTANCE. TAKE TYLENOL [id number] NEEDED AND IF NO CONTRAINDICATIONS ARE PRESENT. INCREASE ORAL HYDRATION. A WOUND CULTURE OR URINE CULTURE WAS ORDERED HERE IN THE EMERGENCY ROOM DEPARTMENT PLEASE FOLLOW-UP WITH PRIMARY CARE PROVIDER AND ADVISE THEM TO GET REPEAT PORTS FROM OUR FACILITY. IF YOU HAD ANY KIEL WRAP/SPLINTS THAT WERE APPLIED HERE, PLEASE DO NOT REMOVE THEM UNTIL YOU SEE YOUR PRIMARY CARE OR SPECIALTY. Referrals: Referrals: FELIPE LOOMIS NP (PCP) Time of Disposition: 17:15 TALA CARDENAS MD Oct 31, 2024 14:44
[2024-10-31 14:50] LABS: BASOPHILS # (AUTO) 0.06 K/uL (0.00-0.20); BASOPHILS % (AUTO) 0.9 % (0.0-5.0); EOSINOPHILS # (AUTO) 0.42 K/uL (0.00-0.70); HEMATOCRIT 40.1 % (36-48); IMMATURE GRANULOCYTE ABSOLUTE 0.01 K/uL (0-1); LYMPHOCYTES # (AUTO) 1.8 K/uL (1.0-4.8); LYMPHOCYTES % (AUTO) 24.9 % (21.0-51.0); MEAN CORPUSCULAR HEMOGLOBIN 33.9 pg (27.0-33.0); MEAN CORPUSCULAR HGB CONC 33.7 g/dL (32.0-36.0); MEAN CORPUSCULAR VOLUME 100.8 fL (79-99); MONOCYTES # (AUTO) 0.7 K/uL (0.1-1.0); MONOCYTES % (AUTO) 9.4 % (3.0-13.0); NEUTROPHILS # (AUTO) 4.1 K/uL (1.8-7.7); NEUTROPHILS % (AUTO) 58.7 % (40.0-77.0); PLATELET COUNT (AUTO) 235 K/uL (130-400); RED BLOOD CELL COUNT(AUTO) 3.98 MIL/uL (4.00-5.50); RED CELL DISTRIBUTION WIDTH 12.9 % (11.0-15.5)
[2024-10-31 14:58] LABS: CREATININE 0.7 mg/dL (0.5-1.0); POTASSIUM 3.9 mmol/L (3.5-5.1)
--- NOTE | 2024-10-31 15:01 | HMCIMG ---
PORTABLE CHEST RADIOGRAPH INDICATION: SOB COMPARISON: 04/05/2022 FINDINGS: Heart size is normal. The pulmonary vascularity and derrick appear normal. No abnormal pulmonary parenchymal opacity or consolidation identified. No significant pleural effusion noted. No pneumothorax detected. Mild thoracic spondylosis. IMPRESSION: No radiographic evidence for any acute cardiopulmonary process.
[2024-10-31 15:08] LABS: MAGNESIUM 2.1 mg/dL (1.80-2.40)
[2024-10-31 15:25] LABS: INR 0.97 (0.85-1.15); PROTHROMBIN TIME 10.3 SEC (9.6-11.6)
[2024-10-31 15:27] LABS: PARTIAL THROMBOPLASTIN TIME 25.5 SEC (26.3-35.5)
[2024-10-31 15:49] LABS: B-TYPE NATRIURETIC PEPTIDE 38 pg/mL (0-100)
[2024-10-31 16:06] LABS: APPEARANCE,URINE CLEAR (CLEAR); BILIRUBIN,URINE NEGATIVE (NEGATIVE); COLOR,URINE YELLOW (YELLOW); GLUCOSE, URINE (UA) NEGATIVE (NEGATIVE); KETONES,URINE NEGATIVE (NEGATIVE); LEUKOCYTE ESTERASE ,URINE 500 Leu/uL (NEGATIVE); NITRATE,URINE NEGATIVE (NEGATIVE); OCCULT BLOOD,URINE NEGATIVE (NEGATIVE); PH,URINE 5.5 (5.0-8.0); PROTEIN,URINE NEGATIVE (NEGATIVE); UROBILINOGEN,URINE 0.2 mg/dL (0.2-1.0)
[2024-10-31 16:07] LABS: ADD UA MICROSCOPIC YES
[2024-10-31 16:10] LABS: BACTERIA,URINE RARE /HPF (None Seen); MUCUS,URINE RARE LPF (None Seen); SQUAMOUS EPITHELIAL CELL,UR RARE /HPF (0-2); WBC,URINE 51-100 /HPF (0-1)
[2024-10-31 16:14] LABS: SARS-CoV-2, RNA, NAAT NEGATIVE SARS CoV-2 (NEGATIVE)
[2024-10-31 16:22] LABS: INFLUENZA TYPE A Negative For Type A (NEGATIVE); INFLUENZA TYPE B Negative For Type B (NEGATIVE)
[2024-10-31] MEDS ORDERED: IOHEXOL 350 MG/ML 100ML INFUS..BTL IV ONE (16:31)
--- NOTE | 2024-10-31 17:08 | HMCIMG ---
CT ANGIOGRAM OF THE CHEST WITHOUT AND WITH CONTRAST. CT RECONSTRUCTIONS INDICATION: Shortness of breath TECHNIQUE: Routine axial images using 3 mm slice thickness were acquired from the lung apices to the bases before and after the intravenous administration of 100 mL of Omnipaque 350 contrast material using the pulmonary embolism protocol. Maximum Intensity Projection imaging in the sagittal and coronal planes were also provided. CT was performed with one or more of the following dose reduction techniques: Automated exposure control, adjustment of the mA and/or kV according to patient size, or use of iterative reconstruction technique. COMPARISON: None FINDINGS: The contrast bolus is of good quality for diagnosis of pulmonary embolism. The heart size is within normal limits without pericardial effusion. The main pulmonary arteries, segmental branches, and visualized subsegmental pulmonary arteries appear normal without intraluminal filling defects. Pulmonary trunk is not enlarged. No evidence for thoracic aortic aneurysm or dissection. The origins of the great vessels and thoracic aorta appear normal. The visible portions of the trachea and airways are patent. No pleural effusion, pneumothorax, abnormal opacity or consolidation, pulmonary nodule, or mass identified. No axillary, hilar, or mediastinal lymphadenopathy detected. Gastric bypass surgery changes. Gallbladder is absent. 2.8 cm diverticulum along the proximal duodenum. Mild thoracic dextroscoliosis. IMPRESSION: No evidence for pulmonary embolism. Additional minor findings and pertinent negatives as reported.
[2024-10-31] MEDS ORDERED: SULF1TAB42 PO (17:16)
[2024-10-31] MEDS: sulfaMETHOX-TMP DS 800/160 TAB PO SCH (18:18)
[2024-10-31] MEDS: 0.9%NACL 1000ML 1,000 ML IV SCH (18:18)
[2024-10-31 18:23] VITALS: BP 152/60; PULSE 67; RESP 18; TEMP 98.1; O2SAT 98
== END 2024-10-31 19:13 | disposition home or self-care (01) ==
LOC: EDH 12:36
DX: N39.0 Urinary tract infection, site not specified (principal); E86.0 Dehydration; E78.00 Pure hypercholesterolemia, unspecified; I10 Essential (primary) hypertension; Z79.02 Long term (current) use of antithrombotics/antiplatelets; Z79.899 Other long term (current) drug therapy; Z88.0 Allergy status to penicillin; Z90.49 Acquired absence of other specified parts of digestive tract; Z90.710 Acquired absence of both cervix and uterus; Z20.822 Contact with and (suspected) exposure to COVID-19
CPT/HCPCS: 99284; 71270; 71045; 87635; 82550; 83735; 84484; 80048; 83880; 85025; 85610; 85730; 87086 ×2; 87186; 87804 ×2; 81001; 36415; 93005; J7030; Q9967

== ENCOUNTER → 2025-02-02 | Outpatient (CLI) | payer OTHER ==
[~2025-02-02] MED LIST changes: +SULF1TAB42 PO
[2025-02-02 11:57] LABS: BASOPHILS # (AUTO) 0.05 K/uL (0.00-0.20); BASOPHILS % (AUTO) 0.8 % (0.0-5.0); EOSINOPHILS # (AUTO) 0.12 K/uL (0.00-0.70); EOSINOPHILS % (AUTO) 1.9 % (0.0-8.0); HEMATOCRIT 40.4 % (36-48); IMMATURE GRANULOCYTE ABSOLUTE 0.02 K/uL (0-1); LYMPHOCYTES # (AUTO) 1.8 K/uL (1.0-4.8); LYMPHOCYTES % (AUTO) 28.3 % (21.0-51.0); MEAN CORPUSCULAR HEMOGLOBIN 33.9 pg (27.0-33.0); MEAN CORPUSCULAR HGB CONC 34.2 g/dL (32.0-36.0); MEAN CORPUSCULAR VOLUME 99.3 fL (79-99); MONOCYTES # (AUTO) 0.5 K/uL (0.1-1.0); MONOCYTES % (AUTO) 7.6 % (3.0-13.0); NEUTROPHILS % (AUTO) 61.1 % (40.0-77.0); PLATELET COUNT (AUTO) 206 K/uL (130-400); RED BLOOD CELL COUNT(AUTO) 4.07 MIL/uL (4.00-5.50); RED CELL DISTRIBUTION WIDTH 13.1 % (11.0-15.5); WHITE BLOOD COUNT (AUTO) 6.5 K/uL (4.8-10.8)
[2025-02-02 12:07] LABS: INR 1.07 (0.85-1.15); PROTHROMBIN TIME 11.3 SEC (9.6-11.6)
[2025-02-02 12:17] LABS: ALBUMIN 3.6 g/dL (3.5-5.0); BILIRUBIN,TOTAL 0.8 mg/dL (0.2-1.0); CREATININE 0.9 mg/dL (0.5-1.0); POTASSIUM 4.7 mmol/L (3.5-5.1); TOTAL PROTEIN, SERUM 6.7 g/dL (6.0-8.3)
== END | disposition home or self-care (01) ==
LOC: LAB 11:23
PROVIDERS: ATTEND Internal Medicine Gastroenterology
DX: R10.12 Left upper quadrant pain (principal)
CPT/HCPCS: 36415; 80053; 82150; 83690; 85025; 85610